=== PATIENT | female | born 1985 | race American Indian/Alaskan Native ===

== ENCOUNTER 2019-03-05 02:43 | Inpatient (IN) | payer MEDICAID ==
[2019-03-05] MEDS: LACTATED RINGERS 1,000 ML IV SCH ×3 (04:34→22:59)
[2019-03-05] MEDS: CELESTONE SOLUSPAN IM SCH (04:36)
[2019-03-05] MEDS: AMPICILLIN/NS 2 GM/100 ML 2 GM/100 ML BAG IV SCH ×3 (04:38→17:46)
[2019-03-05 05:02] LABS: Basophils % (Auto) 0.5 % (0.0-1.8); Eosinophils # (Auto) 0.2 K/mm3 (0.0-0.4); Eosinophils % (Auto) 2.8 % (0.0-4.3); Hemoglobin 12.3 gm/dl (10.1-14.3); Lymphocytes # (Auto) 1.6 K/mm3 (1.2-5.4); Lymphocytes % (Auto) 19.4 % (13.4-35.0); Mean Corpuscular HGB Conc 35 % (30-34); Mean Corpuscular Volume 95 fl (79-97); Platelet Count 201 K/mm3 (140-440); Red Blood Count 3.68 M/mm3 (3.65-5.03); Red Cell Distribution Width 12.8 % (13.2-15.2)
[2019-03-05 05:08] LABS: Bilirubin,Urine NEG (Negative); Blood,Urine NEG (Negative); Color,Urine Straw (Yellow); Protein,Urine <15 mg/dL mg/dL (Negative); Urobilinogen,Urine < 2.0 mg/dL (<2.0)
[2019-03-05 05:17] LABS: Amphetamine Screen,Urine PRESUMPTIVE NEGATIVE; Benzodiazepines Screen,Urine PRESUMPTIVE NEGATIVE; Cannabinoid Screen,Urine PRESUMPTIVE NEGATIVE; Cocaine Screen,Urine PRESUMPTIVE NEGATIVE; Methadone Screen,Urine PRESUMPTIVE NEGATIVE; Opiate Screen,Urine PRESUMPTIVE NEGATIVE
[2019-03-05 09:05] LABS: Hepatitis C Virus Antibody Non-Reactive (NonReactive)
[2019-03-05] MEDS ORDERED: COLACE PO PRN (11:10)
[2019-03-05] MEDS ORDERED: ZOFRAN IV PRN (11:10)
[2019-03-05] MEDS ORDERED: MYLICON PO PRN (11:10)
[2019-03-05] MEDS ORDERED: TYLENOL PO PRN (11:10)
--- NOTE | 2019-03-05 11:10 | History and Physical Report ---
History of Present Illness Date of examination: 03/05/19 Date of admission: 03/05/19 04:05 Chief complaint: leakage of fluid History of present illness: 33-year-old at 33+1 weeks who presents with gross rupture of membranes. Patient reports having occasional irregular contractions. The patient receives care at outside facility. She denies any precipitating event for her symptoms. Her course has been complicated by gestational diabetes that has been diet-controlled. Past History Past Medical History: no pertinent history Past Surgical History: no surgical history Social history: single - Obstetrical History Expected Date of Delivery: 04/22/19 Actual Gestation: 33 Week(s) 1 Day(s) : 1 Para: 0 Hx # Term Pregnancies: 0 Number of Pregnancies: 0 Spontaneous Abortions: 0 Induced : 0 Number of Living Children: 0 Medications and Allergies Allergies Allergy/AdvReac Type Severity Reaction Status Date / Time No Known Allergies Allergy Verified 03/05/19 03:49 Home Medications Medication Instructions Recorded Confirmed Last Taken Type No Known Home Medications [No 03/05/19 03/05/19 Unknown History Reported Home Medications] Active Meds: Active Medications Betamethasone Acet/Betameth SodPhos (Celestone Soluspan) 12 mg IM Q24H RENETTA Stop: 03/06/19 05:01 Last Admin: 03/05/19 04:36 Dose: 12 mg Documented by: Ampicillin Sodium (Ampicillin/Ns 2 Gm/100 Ml) 2 gm in 100 mls @ 100 mls/hr IV Q6HR RENETTA Stop: 03/07/19 00:59 Last Admin: 03/05/19 04:38 Dose: 100 mls/hr Documented by: Lactated Ringer's (Lactated Ringers) 1,000 mls @ 125 mls/hr IV DIRECT RENETTA Last Admin: 03/05/19 04:34 Dose: 125 mls/hr Documented by: Review of Systems All systems: negative Genitourinary: leakage of fluid, contractions - Vital Signs Vital signs: Vital Signs Pulse Resp BP 83 16 111/65 03/05/19 02:55 03/05/19 02:55 03/05/19 02:55 Temp Pulse Resp BP Pulse Ox 86 16 106/66 03/05/19 04:41 03/05/19 02:55 03/05/19 04:41 - Physical Exam Breasts: Positive: deferred Cardiovascular: Regular rate Abdomen: Positive: normal appearance Results Result Diagrams: 03/05/19 03:30 Abnormal lab results 03/05/19 Range/Units 03:30 MCH 34 H (28-32) pg MCHC 35 H (30-34) % RDW 12.8 L (13.2-15.2) % [place] % (Auto) 12.0 H (0.0-7.3) % [place] # 1.0 H (0.0-0.8) K/mm3 All other labs normal. Assessment and Plan - Patient Problems (1) premature rupture of membranes Current Visit: Yes Status: Acute Plan to address problem: Admit for antibiotic therapy and steroid injections Proceed with expected management
[2019-03-05] MEDS: ERYTHROMYCIN LACTOBIONATE 250 MG in NACL 0.9% 100 ML IV SCH ×2 (14:01→22:58)
--- NOTE | 2019-03-05 14:06 | Ultrasound Report ---
OB Ultrasound HISTORY: rupture of membranes. Occasional irregular contractions, concern for ruptured membranes TECHNIQUE: Grayscale and color Doppler imaging performed. COMPARISON: None FINDINGS: Cervical length is 5.8 cm and ROSEMARIE is 5.5. There is a single viable intrauterine gestation which is cephalic in presentation. Overall EGA is 32 weeks and 5 days with an estimated delivery date of 04/25/2019 and estimated weight of 4 pounds and 9 ounces. The placenta is positioned anteriorly. heart rate is 113 bpm. Limited anatomy pawan luation is unremarkable. IMPRESSION: Single viable intrauterine gestation as outlined above with ROSEMARIE of 5.5. Cervical length i s 5.8 cm. Signer Name: Shahbaz Morgan MD Signed: 03/05/2019 2:02 PM Workstation Name: [id number]
[2019-03-06] MEDS: CELESTONE SOLUSPAN IM SCH (04:42)
[2019-03-06] MEDS: ERYTHROMYCIN LACTOBIONATE 250 MG in NACL 0.9% 100 ML IV SCH (06:00)
[2019-03-06] MEDS: AMPICILLIN/NS 2 GM/100 ML 2 GM/100 ML BAG IV SCH (18:48)
[2019-03-06] MEDS: LACTATED RINGERS 1,000 ML IV SCH (23:02)
[2019-03-07] MEDS: AMPICILLIN/NS 2 GM/100 ML 2 GM/100 ML BAG IV SCH (01:15)
[2019-03-07] MEDS: ERYTHROMYCIN LACTOBIONATE 250 MG in NACL 0.9% 100 ML IV SCH ×2 (02:09→08:11)
[2019-03-07] MEDS: TRIMOX PO SCH ×3 (05:56→21:45)
--- NOTE | 2019-03-07 07:03 | Progress Note ---
Assessment and Plan - Patient Problems (1) premature rupture of membranes Current Visit: Yes Status: Acute Plan to address problem: continue expectant management steroids completed Subjective - Subjective Date of service: 03/06/19 Principal diagnosis: PPROM Interval history: Patient without any significant complaints. Ultrasound demonstrates ROSEMARIE of 5cm in vertex presentation. Late entry of note. Patient seen 03/06/19. Denies any vaginal bleeding. Remains afebrile. Patient reports: loss of fluid, movement normal, no new complaints Objective - Vital Signs Vital Signs: Vital Signs - 12hr 03/06/19 03/06/19 03/06/19 20:31 20:32 20:34 Temperature 98.4 F Pulse Rate 96 H 94 H 96 H Respiratory 16 Rate Blood Pressure 115/66 Blood Pressure 115/66 [Right] O2 Sat by Pulse 97 97 Oximetry 03/07/19 01:15 Temperature Pulse Rate 97 H Respiratory Rate Blood Pressure 108/55 Blood Pressure [Right] O2 Sat by Pulse Oximetry - Exam Abdomen: Present: normal appearance, soft - Labs Labs: Abnormal Labs 03/05/19 03/05/19 03/06/19 03:30 20:02 15:46 MCH 34 H MCHC 35 H RDW 12.8 L [place]w % (Auto) 12.0 H [place]th[place]omew # 1.0 H POC Glucose 135 H 188 H 03/06/19 03/06/19 19:09 20:51 MCH MCHC RDW [place]omew % (Auto) Bartholomew # POC Glucose 153 H 117 H Laboratory Results - last 24 hr 03/06/19 03/06/19 03/06/19 12:19 15:46 19:09 POC Glucose 97 188 H 153 H 03/06/19 20:51 POC Glucose 117 H
[2019-03-07] MEDS: LACTATED RINGERS 1,000 ML IV SCH ×2 (08:15→17:41)
--- NOTE | 2019-03-07 08:42 | Progress Note ---
Assessment and Plan A/P HD#2 PPRom , at 33+ weks s/p betamethasone expectant mgt referratl to NICCU and MFM Subjective - Subjective Date of service: 03/07/19 Principal diagnosis: PPROM Patient reports: loss of fluid, movement normal, no new complaints Objective - Vital Signs Vital Signs: Vital Signs - 12hr 03/07/19 01:15 Pulse Rate 97 H Blood Pressure 108/55 - Exam Breasts: normal Cardiovascular: Regular rate, Normal S1 Lungs: Clear to auscultation, Normal air movement Abdomen: Present: normal appearance, soft, normal bowel sounds. Absent: distention, tenderness, guarding Vulva: both: normal Uterus: Present: normal, firm. Absent: bogginess, tenderness FHR: auscultation normal, category 1 Extremities: normal Deep Tendon Reflex Grade: Normal +2 - Labs Labs: Abnormal Labs 03/05/19 03/05/19 03/06/19 03:30 20:02 15:46 MCH 34 H MCHC 35 H RDW 12.8 L [place] % (Auto) 12.0 H [place] # 1.0 H POC Glucose 135 H 188 H 03/06/19 03/06/19 19:09 20:51 MCH MCHC RDW [place] % (Auto) [place] # POC Glucose 153 H 117 H Laboratory Results - last 24 hr 03/06/19 03/06/19 03/06/19 12:19 15:46 19:09 POC Glucose 97 188 H 153 H 03/06/19 03/07/19 20:51 06:57 POC Glucose 117 H 101
[2019-03-07] MEDS: PRENATAL VITAMIN PO SCH (10:10)
--- NOTE | 2019-03-07 13:27 | Consultation ---
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 History: denies: chlamydia, gonorrhea, hepatitis B, hepatitis C Social history: no significant social history - Obstetrical History : 1 Medications and Allergies Allergies Allergy/AdvReac Type Severity Reaction Status Date / Time No Known Allergies Allergy Verified 03/05/19 03:49 Home Medications Medication Instructions Recorded Confirmed Last Taken Type No Known Home Medications [No 03/05/19 03/05/19 Unknown History Reported Home Medications] Active Meds: Active Medications Acetaminophen (Tylenol) 650 mg PO Q4H PRN PRN Reason: Pain MILD(1-3)/Fever >100.5/BOB Amoxicillin (Trimox) 250 mg PO Q8HR RENETTA; Protocol Stop: 03/12/19 05:59 Last Admin: 03/07/19 05:56 Dose: 250 mg Documented by: Docusate Sodium (Colace) 100 mg PO Q12H PRN PRN Reason: Constipation Erythromycin (Sai-Tab) 250 mg PO Q8HR RENETTA; Protocol Stop: 03/12/19 13:59 Lactated Ringer's (Lactated Ringers) 1,000 mls @ 125 mls/hr IV DIRECT RENETTA Last Admin: 03/07/19 08:15 Dose: 125 mls/hr Documented by: Multivitamins/Iron/Calcium ( Vitamin) 1 each PO QDAY RENETTA Last Admin: 03/07/19 10:10 Dose: 1 each Documented by: Ondansetron HCl (Zofran) 4 mg IV Q6H PRN PRN Reason: Nausea And Vomiting Simethicone (Mylicon) 80 mg PO Q6H PRN PRN Reason: Gas pain Review of Systems Constitutional: no weight loss, no weight gain Eyes: normal appearance, no blurred vision, no diplopia Cardiovascular: no chest pain, no orthopnea, no palpitations Respiratory: no shortness of breath, no dyspnea on exertion Gastrointestinal: no abdominal pain, no nausea, no vomiting Neurological: no weakness, no parathesias - Vital Signs Vital signs: Vital Signs Pulse Resp BP 83 16 111/65 03/05/19 02:55 03/05/19 02:55 03/05/19 02:55 Temp Pulse Resp BP Pulse Ox 98.6 F 101 H 16 100/56 97 03/07/19 10:13 03/07/19 10:14 03/07/19 10:13 03/07/19 10:14 03/06/19 20:34 - Physical Exam Cardiovascular: Regular rate Lungs: Positive: Normal air movement Abdomen: Positive: soft. Negative: distention, tenderness, guarding Extremities: Positive: normal - Obstetrical FHR: category 1 Results Result Diagrams: 03/05/19 03:30 Abnormal lab results 03/06/19 03/06/19 03/06/19 Range/Units 15:46 19:09 20:51 POC Glucose 188 H 153 H 117 H (70-105) All other labs normal. Assessment and Plan the patient is G1 @ 33.3 weeks DEE 04/22/19 PPROM - abx IV x 48 hours amp/eryth and then 5 days oral - obtain US - expectant management until 34 weeks when we would rec IOL - s/p BMZ for lungs - would deliver sooner with NRFHT or chorio - please call with any additional concerns - BPP 2x weekly while in house - patient says she was just Dx with GDM please check FBS and 2 hour PC will initiate meds as needed
[2019-03-07] MEDS: ERY-TAB PO SCH ×2 (13:56→21:44)
[2019-03-08] MEDS: LACTATED RINGERS 1,000 ML IV SCH ×2 (00:17→08:05)
[2019-03-08] MEDS: TRIMOX PO SCH ×2 (06:48→14:26)
[2019-03-08] MEDS: ERY-TAB PO SCH ×2 (06:48→14:23)
--- NOTE | 2019-03-08 08:48 | Progress Note ---
Assessment and Plan A/P HD#3 PPRom , at 33+ weks s/p betamethasone expectant mgt appreciate consults fasting and 2hr PP following labs Subjective - Subjective Date of service: 03/08/19 Principal diagnosis: PPROM Patient reports: loss of fluid, movement normal, no new complaints, no contractions Objective - Vital Signs Vital Signs: Vital Signs - 12hr 03/07/19 03/07/19 03/08/19 21:36 21:37 00:25 Temperature 98.4 F Pulse Rate 92 H 92 H 96 H Respiratory 16 Rate Blood Pressure 105/58 119/65 Blood Pressure 105/58 [Right] 03/08/19 03/08/19 06:44 07:54 Temperature 98.6 F Pulse Rate 85 85 Respiratory Rate Blood Pressure 101/55 105/60 Blood Pressure [Right] - Exam Breasts: normal Cardiovascular: Regular rate, Normal S1 Lungs: Clear to auscultation, Normal air movement Abdomen: Present: normal appearance, soft, normal bowel sounds. Absent: distention, tenderness, guarding Vulva: both: normal Uterus: Present: normal, firm, fundal height below umbilicus. Absent: bogginess, tenderness FHR: auscultation normal, category 1 Extremities: normal Deep Tendon Reflex Grade: Normal +2 - Labs Labs: Abnormal Labs 03/05/19 03/05/19 03/06/19 03:30 20:02 15:46 MCH 34 H MCHC 35 H RDW 12.8 L [place] % (Auto) 12.0 H [place] # 1.0 H POC Glucose 135 H 188 H 03/06/19 03/06/19 03/07/19 19:09 20:51 21:59 MCH MCHC RDW [place] % (Auto) [place] # POC Glucose 153 H 117 H 109 H Laboratory Results - last 24 hr 03/07/19 03/07/19 03/08/19 16:24 21:59 06:54 POC Glucose 104 109 H 73
[2019-03-08 10:01] LABS: Glucose,Fasting Gestational 77
[2019-03-08] MEDS: PRENATAL VITAMIN PO SCH (10:05)
--- NOTE | 2019-03-08 13:03 | Consultation ---
History of Present Illness Consult date: 03/08/19 Reason for consult: PROM History of present illness: Ms. Caceres is , 33.4 weeks (madeleine 04/22/19) admitted to [facility] for PPROM. Currently stable. She reports continued leaking of fluid.She denies bleeding, and regular contractions. She is currently receiving antibiotics. She is without complaints today. Past History Past Medical History: no pertinent history Past Surgical History: no surgical history [place] History: denies: chlamydia, gonorrhea, hepatitis B, hepatitis C - Obstetrical History : 1 Medications and Allergies Allergies Allergy/AdvReac Type Severity Reaction Status Date / Time No Known Allergies Allergy Verified 03/05/19 03:49 Home Medications Medication Instructions Recorded Confirmed Last Taken Type No Known Home Medications [No 03/05/19 03/05/19 Unknown History Reported Home Medications] Active Meds: Active Medications Acetaminophen (Tylenol) 650 mg PO Q4H PRN PRN Reason: Pain MILD(1-3)/Fever >100.5/BOB Amoxicillin (Trimox) 250 mg PO Q8HR RENETTA; Protocol Stop: 03/12/19 05:59 Last Admin: 03/08/19 06:48 Dose: 250 mg Documented by: Docusate Sodium (Colace) 100 mg PO Q12H PRN PRN Reason: Constipation Erythromycin (Sai-Tab) 250 mg PO Q8HR RENETTA; Protocol Stop: 03/12/19 13:59 Last Admin: 03/08/19 06:48 Dose: 250 mg Documented by: Lactated Ringer's (Lactated Ringers) 1,000 mls @ 125 mls/hr IV DIRECT RENETTA Last Admin: 03/08/19 08:05 Dose: 125 mls/hr Documented by: Multivitamins/Iron/Calcium ( Vitamin) 1 each PO QDAY RENETTA Last Admin: 03/08/19 10:05 Dose: 1 each Documented by: Ondansetron HCl (Zofran) 4 mg IV Q6H PRN PRN Reason: Nausea And Vomiting Simethicone (Mylicon) 80 mg PO Q6H PRN PRN Reason: Gas pain Review of Systems Constitutional: other (denies fevers, fatigue, chills) Eyes: deferred Ears, nose, mouth and throat: deferred Cardiovascular: other (denies chest pain, palpitations, edema) Respiratory: other (denies sob, wheezing, and coughing) Breasts: deferred Gastrointestinal: other (denies diarrhea, constipation, and nausea) Genitourinary: leakage of fluid, other (denies contractions and bleeding) Rectal Exam: deferred - Vital Signs Vital signs: Vital Signs Pulse Resp BP 83 16 111/65 03/05/19 02:55 03/05/19 02:55 03/05/19 02:55 Temp Pulse Resp BP Pulse Ox 97.8 F 83 18 107/58 97 03/08/19 12:20 03/08/19 12:17 03/08/19 12:20 03/08/19 12:17 03/06/19 20:34 - Physical Exam Breasts: Positive: deferred Cardiovascular: Regular rate, Normal S1, Normal S2 Lungs: Positive: Clear to auscultation, Normal air movement Abdomen: Positive: soft, other (nontender, gravid) Results Result Diagrams: 03/05/19 03:30 Abnormal lab results 03/07/19 Range/Units 21:59 POC Glucose 109 H (70-105) All other labs normal. Assessment and Plan A- IUP 33.4 weeks ( MADELEINE 04/22/19) PPROM Current antibiotic therapy S/P betamethasone for lung maturity VSS Afebrile P- -Continue with current plan of care - Complete IV antibiotics x 48 hours amp/eryth and then 5 days oral - Perform US - Expectant management until 34 weeks, then recommend IOL - Deliver sooner with NRFHT or chorio - BPP 2x weekly while in house - Monitor for fevers - Newly diagnosed GDM- please document accuchecks QAC and QHS. Sliding scale insulin as indicated for control Per patient request, she will be transfered to [facility] for continued care under Dr. Damian Billy. With additional questions or concerns, please contact on MD. Thank you. Fidencio Howard NP
[2019-03-08 17:41] VITALS: BP 107/58
== END 2019-03-08 18:08 | disposition short-term general hospital (02) | DRG 781 ==
LOC: TRG 02:43 → LD 03:24 → TRG 04:05 → OBSVTOIN 11:10
PROVIDERS: ADMIT Obstetrics & Gynecology; ATTEND Obstetrics & Gynecology
DX: O42.913 Preterm premature rupture of membranes, unspecified as to length of time between rupture and onset of labor, third trimester (principal); O24.410 Gestational diabetes mellitus in pregnancy, diet controlled; Z3A.33 33 weeks gestation of pregnancy
CPT/HCPCS: 36415; 59025; 76805; 80307; 81001; 82947; 82962; 85025; 85660; 86592; 86706; 86762; 86803; 86850; 86900; 86901; 87806; G0378; J0290; J0702; J1364; J7120